=== PATIENT | female | born 1945 | race Caucasian/White ===

== ENCOUNTER 2019-04-02 21:06 | Inpatient (IN) | payer MEDICARE, OTHER ==
[~2019-04-02] VITALS: Ht 167.6 cm; Wt 72.8 kg
[~2019-04-02 21:06] MED LIST: ACIDOPHILUS1 EAC1 PO; ASPI81CH PO; Aspir 8181 MG PO; BIOTIN2500 MCG PO; BUPR150ER PO; CALCIUM 500 +1 EAC2 PO; COLE625 PO; CYAN1000 PO; FENO145 PO; FISH OIL 1,0001 EACH PO; FISH1000 PO; FLAX PO; Fe C Tablet1 EACH PO; HYDCHL12.5 PO; Hair, Skin & N1 EACH PO; IRON150C PO; LEVSOD100 PO; LEVSOD75 PO; LIOT25 PO; LOSA50 PO; LOSARTAN-HCTZ1 EACH PO; Multiple Vitam1 EAC1 PO; RANI150 PO; SERT100 PO; STOOL SOFTENER1 EAC1 PO; VITAMIN B122500 MCG PO; VITAMIN D33000 UNIT PO
[2019-04-02] MEDS ORDERED: LOSARTAN-HCTZ1 EACH PO (22:10)
[2019-04-02] MEDS ORDERED: PROP10 PO (22:10)
[2019-04-02 22:28] LABS: BASOPHILS ABSOLUTE AUTO 0.03 K/mm3 (0.00-0.23); BASOPHILS PERCENT AUTO 0 % (0-2); EOSINOPHILS PERCENT AUTO 0 % (0-6); Hematocrit 36.7 % (33.0-51.0); Hemoglobin 12.3 g/dL (11.5-16.0); IMMATURE GRAN PERCENT AUTO 1 % (0-1); LYMPHOCYTES ABSOLUTE AUTO 0.67 K/mm3 (0.84-5.20); LYMPHOCYTES PERCENT AUTO 5 % (21-46); MONOCYTES ABSOLUTE AUTO 0.63 K/mm3 (0.16-1.47); MONOCYTES PERCENT AUTO 4 % (4-13); Mean Corpuscular HGB Conc 33.5 g/dL (31.5-36.5); Mean Corpuscular Volume 90 fL (80-100); Mean Platelet Volume 10.2 fL (9.1-12.4); NEUTROPHILS PERCENT AUTO 90 % (41-73); Platelet Count 151 K/mm3 (150-400); RDW Coefficient Variation 13.2 % (11.7-14.2); RDW Standard Deviation 43.8 fL (35.1-46.3); White Blood Cell Count 14.63 K/mm3 (4.00-11.30)
[2019-04-02 22:42] LABS: Alanine Aminotransfer (ALT/SGP 39 U/L (12-78); Albumin, Blood 3.4 g/dL (3.4-5.0); Albumin/Globulin Ratio 0.9 (0.8-1.8); Alk Phos 86 U/L (50-136); Anion Gap 10 mmol/L (6-16); Aspartate Aminotrans (AST/SGOT 23 U/L (12-37); Bilirubin, Total 0.9 mg/dL (0.1-1.0); Blood Urea Nitrogen 17 mg/dL (8-24); Bun/Creatinine Ratio 25.9 (12.0-20.0); CO2, Blood 24 mmol/L (21-32); Chloride, Blood 104 mmol/L (98-108); Creatinine, Blood 0.66 mg/dL (0.40-1.00); Globulin, Blood 3.9 g/dL (2.2-4.0); Glomerular Filtration Rate >60 (60-); Glucose, Blood 164 mg/dL (70-99); Magnesium, Blood 1.2 mg/dL (1.6-2.4); Potassium, Blood 2.9 mmol/L (3.5-5.5); Sodium, Blood 138 mmol/L (136-145); Total Protein, Blood 7.3 g/dL (6.4-8.2)
[2019-04-02 22:43] LABS: Source, Urine Clean Catch
[2019-04-02 22:45] LABS: Appearance, Urine Cloudy (Clear); Bilirubin, Urine Neg (Neg); Blood, Urine 5+ (Neg); Color, Urine Amber (P-Yellow); Glucose Qualitative, Urine Neg (Neg); Ketones, Urine 1+ (Neg); Leukocyte Esterase, Urine 3+ (Neg); Nitrite, Urine Neg (Neg); Protein, Urine 4+ (Neg); Specific Gravity, Urine 1.015 (1.003-1.022); Urobilinogen, Urine NORM (Normal)
[2019-04-02 22:59] LABS: Bacteria Many /hpf; Red Blood Cells, Urine 0-2 /hpf (0-2); Squamous Epithelial Cells Few /hpf (Few); White Blood Cells, Urine TNTC /hpf (0-5)
[2019-04-02 23:49] LABS: CPK Creatine Kinase 159 U/L (26-193)
--- NOTE | 2019-04-03 02:00 | NUR ---
PT TO ICU 9 FROM ED. PT ARRIVES ON STRETCHER ABLE TO STAND AND PIVOT TO BSC AND THEN INTO BED WITH NO DIFFICULTY. PT RECEIVING 3 OF 3 LITER BOLUS ON ARRIVAL. SATS IN LOW TO MID 90'S ON 2L NC. PT AFEBRILE WITH TEMP OF 98.1 AND 98.6. PT ALERT, ORIENTED, AND PLEASANT STATING THAT SHE "FEELS MUCH BETTER" BUT THAT SHE IS "COLD". PT DENIES NAUSEA AT THIS TIME. LUNG SOUNDS CLEAR T/O WITH AUDIBLE WHEEZES. PT'S AND GRANDSON AT BEDSIDE. DR. HANNAH IN TO ASSESS PATIENT. SEE FULL ADMISSION HISTORY AND ASSESSMENT.
[2019-04-03 03:29] LABS: Hematocrit 33.8 % (33.0-51.0); Hemoglobin 10.8 g/dL (11.5-16.0); Mean Corpuscular HGB 29.4 pg (26.0-34.0); Mean Corpuscular Volume 92 fL (80-100); Mean Platelet Volume 9.7 fL (9.1-12.4); Platelet Count 137 K/mm3 (150-400); RDW Coefficient Variation 13.4 % (11.7-14.2); RDW Standard Deviation 45.8 fL (35.1-46.3); Red Blood Cell Count 3.67 M/mm3 (3.80-5.20); White Blood Cell Count 12.32 K/mm3 (4.00-11.30)
[2019-04-03 03:49] LABS: Alanine Aminotransfer (ALT/SGP 32 U/L (12-78); Albumin, Blood 2.9 g/dL (3.4-5.0); Albumin/Globulin Ratio 0.8 (0.8-1.8); Alk Phos 76 U/L (50-136); Anion Gap 7 mmol/L (6-16); Aspartate Aminotrans (AST/SGOT 23 U/L (12-37); Bilirubin, Total 0.4 mg/dL (0.1-1.0); Blood Urea Nitrogen 15 mg/dL (8-24); Bun/Creatinine Ratio 19.5 (12.0-20.0); CO2, Blood 25 mmol/L (21-32); Calcium, Blood 7.8 mg/dL (8.5-10.1); Chloride, Blood 109 mmol/L (98-108); Creatinine, Blood 0.77 mg/dL (0.40-1.00); Globulin, Blood 3.6 g/dL (2.2-4.0); Glomerular Filtration Rate >60 (60-); Glucose, Blood 153 mg/dL (70-99); Potassium, Blood 3.7 mmol/L (3.5-5.5); Sodium, Blood 141 mmol/L (136-145); Total Protein, Blood 6.5 g/dL (6.4-8.2)
[2019-04-03 03:52] LABS: Source, Urine Catheter
[2019-04-03 03:53] LABS: Appearance, Urine Hazy (Clear); Bilirubin, Urine Neg (Neg); Blood, Urine 5+ (Neg); Color, Urine Yellow (P-Yellow); Glucose Qualitative, Urine Neg (Neg); Ketones, Urine Neg (Neg); Leukocyte Esterase, Urine 3+ (Neg); Nitrite, Urine Pos (Neg); Protein, Urine 3+ (Neg); Urobilinogen, Urine NORM (Normal)
[2019-04-03 04:02] LABS: White Blood Cells, Urine 50-100 /hpf (0-5)
[2019-04-03 04:03] LABS: Bacteria Many /hpf; Squamous Epithelial Cells Not Seen /hpf (Few)
--- NOTE | 2019-04-03 04:12 | NUR ---
0335 PT'S RR RATE INTO MID 40'S AND SATS IN 70'S-80'S. WENT TO CHECK ON PT AND PT WAS HALF IN AND HALF OUT OF BED. PT'S LIPS WERE CYANOTIC AND PT WAS MINIMALLY RESPONSIVE. PT SAFELY PUT BACK INTO BED AND 02 INCREASED TO 15 L WITH MINIMAL OXYGENATION IMPROVEMENT. PT PLACED ON NONREBREATHER AT 15L, SATS BETWEEN 93-98%. PT HYPERTENSIVE AND TACHYPNEIC. MOODY TEMP PLACED TO ACCURATELY TRACK PT'S TEMP. TEMP ON INSERTION 103.0. ICE PACK PLACED IN GROIN AND ARMPITS AND HOSPITALIST NOTIFIED OF PT'S CHANGE IN CONDITION. TYLENOL SUPPOSITORY GIVEN. 0400 PT'S TEMPERATURE CURRENTLY 105, COOLING BLANKET STARTED. PT APPEARS LETHARGIC AND MINIMALLY RESPONSIVE VERBALLY. PT NORMOTENSIVE, RR IN MID 30'S. WILL CONTINUE TO MONITOR
--- NOTE | 2019-04-03 04:52 | NUR ---
PT SWITCHED TO [place] FACE MASK, 4L SATS IN THE MID TO LOW 90'S
--- NOTE | 2019-04-03 05:34 | NUR ---
HOSPITALIST AT BEDSIDE. UPDATED ON PT'S STATUS. PT IS CURRENTLY MUCH MORE ALERT AND STATES THAT SHE DOESN'T REMEMBER ATTEMPTING TO CRAWL OUT OF BED. BED IN LOW LOCKED POSITION, DOOR/CURTAIN OPEN, BED ALARM ON.
--- NOTE | 2019-04-03 05:56 | NUR ---
PT HYPOTENSIVE. BRIELLE AT BEDSIDE TO PLACE CENTRAL LINE.
--- NOTE | 2019-04-03 06:01 | NUR ---
PT'S UPDATED WITH PT'S MEDICAL STATUS
--- NOTE | 2019-04-03 07:20 | NUR ---
RECEIVED REPORT FROM FRANCIE CORTEZ RN THAT CENTRAL LINE XRAY WAS DONE AND VERIFIED. LEVOPHED WAS ALREADY INFUSING IN LINE. PT WAS STILL HYPOTENSIVE DESPITE FLUID BOLUS RUNNING, SO LEVOPHED WAS TIRTRATED UP.
[2019-04-03 09:02] LABS: PCO2 Arterial 37.8 mmHg (35-45); PO2 Arterial 78.8 mmHg (80-100)
--- NOTE | 2019-04-03 09:10 | NUR ---
09-ASSISTED DR. GONZALEZ WITH CENTRAL LINE REPOSITIONING. SHE WAS NOTIFIED OF THE CONSULT. REGARDING PT'S BLOOD PRESSURE. ORDERS RECEIVED. 909-CHEST X-RAY WAS DONE AFTER CENTRAL LINE WAS PULLED 2 CM OUT. PLACEMENT CONFIRMED BY DR. GONZALEZ.
--- NOTE | 2019-04-03 12:00 | NUR ---
STILL ON LEVOPHED @ 6MCG/KG/MIN. PT HAD REFUSED HER BREAKFAST AND DINNER BUT IS ABLE TO TOLERATE WATER & ICE CREAM. PT STATED SHE FELT MUCH BETTER THAN EARLY THIS MORNING.
[2019-04-03 13:33] LABS: Adenovirus Not Detected (NOT DETECT); Bordetella pertussis Not Detected (NOT DETECT); Chlamydophila pneumoniae Not Detected (NOT DETECT); Coronavirus 229E Not Detected (NOT DETECT); Coronavirus HKU1 Not Detected (NOT DETECT); Coronavirus NL63 Not Detected (NOT DETECT); Coronavirus OC43 Not Detected (NOT DETECT); Human Metapneumovirus Not Detected (NOT DETECT); Human Rhinovirus/Enterovirus Not Detected (NOT DETECT); Influenza A Not Detected (NOT DETECT); Influenza A/2009-H1 Not Detected (NOT DETECT); Influenza A/H1 Not Detected (NOT DETECT); Influenza A/H3 Not Detected (NOT DETECT); Influenza B Not Detected (NOT DETECT); Mycoplasma pneumoniae Not Detected (NOT DETECT); Parainfluenza Virus 1 Not Detected (NOT DETECT); Parainfluenza Virus 2 Not Detected (NOT DETECT); Parainfluenza Virus 3 Not Detected (NOT DETECT); Parainfluenza Virus 4 Not Detected (NOT DETECT); Respiratory Syncytial Virus Not Detected (NOT DETECT)
--- NOTE | 2019-04-03 16:00 | NUR ---
PT IS RESTING IN BED VISTING WITH FAMILY. RECENTLY WAS ABLE TO MAKE ANOTHER TIRATION DOWNON LEVOPHED. PT IS CURRENTLY RUNNING AT 3MCG/MIN. PLACED PT ON ROOM AIR AT THIS TIME SHE HAS MAINTAINED SAT'S IN THE MID TO HIGH 90'S. PT HAS BEEN PUTTING OUT ADAQUATE URINE IN HER MOODY.
--- NOTE | 2019-04-03 18:34 | NUR ---
WAS ABLE TO START WEANING PT TODAY FROM LEVOPHED AFTER PT RECEIVED MULTIPLE BOLUSES OF IV FLUIDS. PT CURRENTLY RUNNING LEVOPHED AT 3MCG/MIN. PT WAS WEANED TO ROOM AIR THIS AFTERNOON. TMAX TODAY WAS 100.2 AND PT HAS BEEN AFEBRILE THIS AFTERNOON. ENCOURAGED PT TO REMEMBER TO REPOSITION HERSELF WHILE LAYING IN BED.
[2019-04-04 05:11] LABS: Hematocrit 26.5 % (33.0-51.0); Hemoglobin 8.5 g/dL (11.5-16.0); Mean Corpuscular HGB 29.4 pg (26.0-34.0); Mean Corpuscular HGB Conc 32.1 g/dL (31.5-36.5); Mean Corpuscular Volume 92 fL (80-100); Mean Platelet Volume 10.1 fL (9.1-12.4); Platelet Count 96 K/mm3 (150-400); RDW Coefficient Variation 14.2 % (11.7-14.2); RDW Standard Deviation 48.2 fL (35.1-46.3); Red Blood Cell Count 2.89 M/mm3 (3.80-5.20); White Blood Cell Count 11.33 K/mm3 (4.00-11.30)
--- NOTE | 2019-04-04 05:15 | NUR ---
ASSUMED PT CARE/END OF SHIFT SUMMARY ASSUMED PT CARE AT 191. PT SLEEPING; EASILY AROUSABLE. ALERT AND ORIENTED AND ABLE TO MAKE NEEDS KNOWN. LEVOPHED INFUSING AT 3MCG/MIN UPON START OF SHIFT; TITRATED DOWN TO 1MCG/MIN AT 1999 AND TURNED OFF BY 0. BLOOD PRESSURES HAVE REMAINED STABLE WITH SYSTOLIC ABOVE 100 AND MAP'S GREATER THAN 65. CHANGED CENTRAL LINE TO RIGHT IJ; PT IS CURRENTLY SALINE LOCKED. NSR WITH HR 70'S. ONE EPISODE OF A NON-SUSTAINED 8 BEAT RUN OF V-TACH; ASYMPTOMATIC. 2L OF OXYGEN VIA NASAL CANNULA; BIOX > 91%; LUNG SOUNDS REMAIN CLEAR T/O ALL LOBES. MOODY CATHETER IS PATENT AND DRAINING KERON COLORED URINE TO GRAVITY. PT C/O HEADACHE PAINS 4/10; MEDICATED WITH TYLENOL PER ORDERS; EFFECTIVE. CALL LIGHT LEFT WITHIN REACH; PT ABLE TO MAKE HER NEEDS KNOWN. WILL CONTINUE TO MONITOR UNTIL REPORT IS HANDED OFF TO ONCOMING RN
[2019-04-04 05:35] LABS: Anion Gap 7 mmol/L (6-16); Blood Urea Nitrogen 13 mg/dL (8-24); Bun/Creatinine Ratio 19.7 (12.0-20.0); CO2, Blood 22 mmol/L (21-32); Calcium, Blood 7.8 mg/dL (8.5-10.1); Chloride, Blood 118 mmol/L (98-108); Creatinine, Blood 0.66 mg/dL (0.40-1.00); Glomerular Filtration Rate >60 (60-); Glucose, Blood 109 mg/dL (70-99); Magnesium, Blood 1.8 mg/dL (1.6-2.4); Potassium, Blood 3.7 mmol/L (3.5-5.5); Sodium, Blood 147 mmol/L (136-145)
[2019-04-04 05:46] LABS: BAND PERCENT MAN 7 % (0-8); BASOPHILS PERCENT MAN 0 % (0-2); EOSINOPHILS PERCENT MAN 0 % (0-6); LYMPHOCYTES ABSOLUTE MAN 1.01 K/mm3 (0.84-5.20); LYMPHOCYTES PERCENT MAN 9 % (21-46); MONOCYTES ABSOLUTE MAN 0.45 K/mm3 (0.16-1.47); MONOCYTES PERCENT MAN 4 % (4-13); NEUTROPHILS ABSOLUTE MAN 9.85 K/mm3 (1.96-9.15); SEG NEUTROPHILS PERCENT MAN 80 % (41-73); TOTAL CELLS COUNTED 100
--- NOTE | 2019-04-04 09:41 | NUR ---
CARE ASSUMED CARE AND REPORT ASSUMED FROM KHOA RIVERA. PT SITTING UP IN BED TALKING WITH DAUGHTER. A/O X3. C/O HEADAHCE, UPPER BACK PAIN, AND R FLANK PAIN. CORE TEMP READING 100.0; WILL MONITOR AND RECHECK WITH TEMPORAL PROBE. WILL MEDICATE WITH TYLENOL PO. IVS SALINE LOCKED. NSR, HR 80S. MAP 80. CLEAR LUNG SOUNDS WITH FINE CRACKLES IN BASES; SPO2 95% ON RA. MOODY CATH REMAINS SECURED AND PATENT; DARK URINE AT THIS TIME. WILL ATTEMPT TO REMOVE TODAY. WILL CONTINUE TO MONITOR.
--- NOTE | 2019-04-04 12:30 | NUR ---
REASSESSMENT PATIENT GAVE STUDENT NURSE PERMISSION TO PROVIDE CARE ON 04/04/19. PATIENT ATTEMPTED TAKING NAP AND COMPLAINED OF BACK PAIN. BACK RUB AND HEATING PAD PROVIDED WHICH PATIENT STATES HELPED. SEEN BY MD AND UPDATED FAMILY AT BEDSIDE. MOODY CATHETHER REMOVED WITHOUT COMPLICATION. PATIENT HAD BM. OFFERED BED BATH BUT PATIENT REFUSED STATED SHE HAD ONE AT 0400. CURRENTLY UP IN CHAIR EATING LUNCH WITH . PATIENT FELT SOB AFTER BM, 2L NC STARTED TOLERATING WELL; SPO2 97%. LUNG SOUNDS CLEAR IN UPPER LOBES BUT FINE CRACKLES IN BASES. PATIENT STATES PAIN IS 0/10 NOW AND AFEBRILE CURRENTLY. WILL CONTINUE TO MOINTOR.
--- NOTE | 2019-04-04 13:35 | NUR ---
LR WAS STARTED ORDER 50CC/HR, INFUSING VIA CENTRAL LINE ON RIGHT IJ.
--- NOTE | 2019-04-04 17:09 | NUR ---
Reassesment Pt sleep most of afternoon in bed, currently sitting in bed engaging with family members. Vital signs WNL, pt was afebrile. Expitory wheezes noted anteriorly, educated on incentive siprometer. Wheezes improved after. Pt O2 level was 95% on 2 liters NC. RT at bedside. Pt had no difficulty drinking medication. Will continue to monitor.
--- NOTE | 2019-04-04 18:24 | NUR ---
SHIFT SUMMARY' MOODY CATH REMOVED EARLY IN SHIFT. UP TO CHAIR FOR FEW HOURS AND LINENS CHANGED. UP TO TOILET MULTIPLE TIMES DURING SHIFT. PT HAD 2 LARGE, SOFT BOWEL MOVEMENTS DURING SHIFT. TYELNOL PO GIVEN FOR PAIN AND FEVER NEEDED. FAMILY BEDSIDE THROUGHOUT SHIFT. PT TENDS TO BECOME SOB WITH EXERTION AND IS WHEEZY FOR AWHILE. FEW EPISODES TODAY WHERE PT BECAME WHEEZY, SUDDENLY TIRED, AND C/O INSTANT HEADACHE. ALBUTEROL TREATMENTS GIVEN PRN. PT USING FLUTTER VALVE AND IS TOLERATED. AT BEDSIDE MOST OF SHIFT. MD MOLINA AWARE OF DYSPNEA WITH EXERTION. LR MIV STARTED AT 50 ML/HR PER ORDER. WILL GIVE BEDSIDE, HANDOFF REPORT TO VIJAY RIVERA.
--- NOTE | 2019-04-04 22:05 | NUR ---
ASSUMED PT CARE AT 1915 PT LYING IN BED WITH AT BEDSIDE. ALERT AND ORIENTED AND ABLE TO MAKE NEEDS KNOWN. C/O 6/10 HEADACHE PAIN; STATES IT FEELS LIKE PRESSURE AND ACHING TYPE PAIN AT THE BASE OF HER HEAD THAT RADIATES TO SHARP STABBING PAIN TO BILATERAL EARS. DAY SHIFT MEDICATED WITH PRN TYLENOL PER ORDER WITH NO TO MINIMAL EFFECT. PT HAS HEATING PAD UNDER NECK, HEAD, AND UPPER PORTION OF BACK THAT SHE STATES IS HELPING TREMENDOUSLY. CALLED PHYSICIAN WHO GAVE ORDERS FOR A ONE TIME DOSE OF ULTRAM 50MG BY MOUTH; WILL MONITOR FOR EFFECTIVENESS. PT BECOMES VERY SOB WITH MINIMAL EXERTION. AUDIBLE WHEEZING NOTED AT TIMES; HOWEVER, LUNG SOUNDS ARE CLEAR T/O ALL LOBES. 2L OF OXYGEN VIA NC; BIOX GREATER THAN 91%. NSR WITH HR 80'S; INCREASES TO 100'S WITH EXERTION. ABDOMEN IS SOFT, NON-TENDER WITH HYPERACTIVE TONES NOTED X4. PT HAS BEEN HAVING LOOSE, LIQUID STOOL. CONTINENT OF BOTH BOWEL AND BLADDER. VOIDING APPROPRIATELY POST MOODY REMOVAL. CENTRAL LINE TO RIGHT IJ; REMAINS SALINE LOCKED. CALL LIGHT LEFT WITHIN REACH; WILL CONTINUE TO MONITOR.
[2019-04-05 04:45] LABS: BASOPHILS ABSOLUTE AUTO 0.03 K/mm3 (0.00-0.23); BASOPHILS PERCENT AUTO 0 % (0-2); EOSINOPHILS PERCENT AUTO 1 % (0-6); Hematocrit 26.9 % (33.0-51.0); Hemoglobin 8.7 g/dL (11.5-16.0); IMMATURE GRAN ABSOLUTE AUTO 0.07 K/mm3 (0.00-0.10); IMMATURE GRAN PERCENT AUTO 1 % (0-1); LYMPHOCYTES ABSOLUTE AUTO 0.89 K/mm3 (0.84-5.20); LYMPHOCYTES PERCENT AUTO 9 % (21-46); MONOCYTES ABSOLUTE AUTO 0.69 K/mm3 (0.16-1.47); MONOCYTES PERCENT AUTO 7 % (4-13); Mean Corpuscular HGB 29.8 pg (26.0-34.0); Mean Corpuscular HGB Conc 32.3 g/dL (31.5-36.5); Mean Corpuscular Volume 92 fL (80-100); Mean Platelet Volume 9.9 fL (9.1-12.4); NEUTROPHILS ABSOLUTE AUTO 7.76 K/mm3 (1.96-9.15); NEUTROPHILS PERCENT AUTO 82 % (41-73); Platelet Count 131 K/mm3 (150-400); RDW Coefficient Variation 14.4 % (11.7-14.2); RDW Standard Deviation 48.9 fL (35.1-46.3); Red Blood Cell Count 2.92 M/mm3 (3.80-5.20); White Blood Cell Count 9.54 K/mm3 (4.00-11.30)
[2019-04-05 05:01] LABS: Albumin, Blood 2.3 g/dL (3.4-5.0); Anion Gap 8 mmol/L (6-16); Blood Urea Nitrogen 11 mg/dL (8-24); Bun/Creatinine Ratio 18.9 (12.0-20.0); CO2, Blood 22 mmol/L (21-32); Calcium, Blood 8.1 mg/dL (8.5-10.1); Chloride, Blood 114 mmol/L (98-108); Creatinine, Blood 0.58 mg/dL (0.40-1.00); Glomerular Filtration Rate >60 (60-); Glucose, Blood 140 mg/dL (70-99); Magnesium, Blood 1.6 mg/dL (1.6-2.4); Phosphorus, Blood 1.7 mg/dL (2.5-4.9); Potassium, Blood 3.5 mmol/L (3.5-5.5); Sodium, Blood 144 mmol/L (136-145)
--- NOTE | 2019-04-05 05:28 | NUR ---
END OF SHIFT SUMMARY NO SIGNIFICANT CHANGES SINCE LAST ENTRY. NIGHT WAS UNEVENTFUL. PT UP TO BEDSIDE COMMODE T/O NIGHT WITH ONE PERSON ASSIST FOR SAFETY. SOB WITH EXERTION SEEMED TO IMPROVE SLIGHTLY. BIOX MAINTAINED WITH OXYGEN AT 2L VIA NASAL CANNULA. LUNG SOUNDS REMAIN CLEAR T/O ALL LOBES. PT HAS BEEN NSR WITH OCCASIONAL PVC'S AND INTO SINUS TACH WITH EXERTION. STABLE BP'S. PT HAD ANOTHER NON-SUSTAINED; ASYMPTOMATIC RUN OF VTACH. DENIES ANY CHEST PAIN OR DISCOMFORT. ONLY C/O RECURRING HEADACHE PAIN THAT RADIATED TO BILATERAL EARS. MEDICATED WITH ONE DOSE OF ULTRAM 50MG AND TYLENOL THAT APPEARED EFFECTIVE. CALL LIGHT LEFT WITHIN REACH; PT ABLE TO MAKE NEEDS KNOWN. WILL CONTINUE TO MONITOR UNTIL REPORT IS HANDED OFF TO ONCOMING RN.
--- NOTE | 2019-04-05 08:00 | NUR ---
DR. VILLEDA IN TO SEE PATIENT, NEW ORDERS RECEIVED.
--- NOTE | 2019-04-05 09:22 | NUR ---
PT IN TO WORK WITH PATIENT, UP TO ROOM TOILET, VOIDED, PULL UP CHANGED, PATIENT NOW UP IN CHAIR, CALL LIGHT IN REACH, WILL CONTINUE TO MONITOR.
--- NOTE | 2019-04-05 10:40 | NUR ---
VACCINE MANAGER HERE TO DO ORDERED ECHO, PATIENT RETURNED TO BED FROM CHAIR WITH WALKER AND ONE ASSIST, PATIENT STEADY, CALL LIGHT IN REACH, WILL CONTINUE TO MONITOR.
--- NOTE | 2019-04-05 11:04 | NUR ---
ECHO DONE, PATIENT RESTING COMFORTABLY, NO NEEDS IDENTIFIED AT THIS TIME.
--- NOTE | 2019-04-05 12:17 | NUR ---
REPORT REC FROM COLLISION CENTER MANAGER @ [id number], PT WILL COME UP VIA W/C AFTER LUNCH
--- NOTE | 2019-04-05 12:17 | NUR ---
REPORT CALLED TO JOYCE GARDNER RN, WILL TRANSFER PATIENT TO ROOM 306 ONCE SHE ATE LUNCH.
--- NOTE | 2019-04-05 18:42 | NUR ---
SHIFT SUMMARY PT XFER'D FROM ICU @1300, A&O, NO C/O ANY KIND, BEDRESTING, WILL CONT TO MONITOR UNTIL REPORT GIVEN TO VIJAY RIVERA.
--- NOTE | 2019-04-06 05:11 | NUR ---
PT A/O X4. PLEASANT AND FOLLOWED COMMANDS. SLEPT WELL THROUGHOUT THE NIGHT. CALLS APPROPRIATELY. VSS, NO ACUTE CHANGES. PLANS TO BE DISCHARGED TODAY.
[2019-04-06] MEDS ORDERED: Vsl#3 Capsule1 EACH PO (09:28)
[2019-04-06] MEDS ORDERED: CEPH500 PO (09:29)
--- NOTE | 2019-04-06 09:30 | NUR ---
NO PREFERENCE FOR HOME [facility]ALTH [facility], WHOEVER CAN GET TO HER FASTER.
--- NOTE | 2019-04-06 14:45 | NUR ---
DISCHARGE PT DISCHARGED TO HOME. THIS RN EXPLAINED DISCHARGE INSTRUCTIONS AND MEDICATIONS TO PT AND SHE REPORTS SHE UNDERSTANDS. IV REMOVED WITHOUT DIFFICULTY. PT TRANSFERRED TO PRIVATE VEHICLE VIA WHEELCHAIR. BELONGINGS WITH PT.
== END 2019-04-06 13:08 | disposition home health service (06) | DRG 871 ==
LOC: ER 21:06 → ICUW 21:07 → ER 04-03 00:33 → ICUW 04-03 01:31 → MEDS 04-05 12:49 → ENPENDDIS 04-06 09:29 → MEDS 04-06 13:08
PROVIDERS: Emergency Medicine; Internal Medicine; Internal Medicine Critical Care Medicine; Internal Medicine Pulmonary Disease; ADMIT Internal Medicine
PROC: 05HM33Z Insertion of Infusion Device into Right Internal Jugular Vein, Percutaneous Approach (ICD-10-PCS; principal; 2019-04-03)
PROC: B543ZZA Ultrasonography of Right Jugular Veins, Guidance (ICD-10-PCS; 2019-04-03)
DX: A41.51 Sepsis due to Escherichia coli [E. coli] (principal); R65.21 Severe sepsis with septic shock; J96.01 Acute respiratory failure with hypoxia; G92 Toxic encephalopathy; N10 Acute pyelonephritis; E87.0 Hyperosmolality and hypernatremia; I47.2 Ventricular tachycardia; J98.11 Atelectasis; D69.6 Thrombocytopenia, unspecified; E87.6 Hypokalemia; E83.42 Hypomagnesemia; E03.9 Hypothyroidism, unspecified; I10 Essential (primary) hypertension; E78.5 Hyperlipidemia, unspecified; F32.9 Major depressive disorder, single episode, unspecified; I27.20 Pulmonary hypertension, unspecified; E86.1 Hypovolemia; E78.00 Pure hypercholesterolemia, unspecified; E86.0 Dehydration; W19.XXXA Unspecified fall, initial encounter; Z88.1 Allergy status to other antibiotic agents; Z88.8 Allergy status to other drugs, medicaments and biological substances; Z79.82 Long term (current) use of aspirin; Z79.899 Other long term (current) drug therapy
CPT/HCPCS: 0099U; 36415; 36556; 36600; 51702; 70450; 71045; 71046; 71260; 74177; 80048; 80053; 80069; 81001; 82550; 82803; 83605; 83735; 83880; 84145; 84484; 85025; 85027; 85379; 87040; 87077; 87086; 87186; 93005; 93010; 93306; 94667; 94760; 96361; 96365-59; 96367; 96375; 96376; 97110; 97116; 97162; 97165; 97530; 99285-25; A9270; C1751; G0378; J0692; J0696; J1650; J1940; J1956; J2405; J3475; J7030; J7040; J7050; J7060; J7120; Q9967

== ENCOUNTER → 2019-05-14 | Outpatient (CLI) | payer MEDICARE, OTHER ==
[~2019-05-14] MED LIST changes: +CEPH500 PO; +PROP10 PO; +Vsl#3 Capsule1 EACH PO
== END | disposition home or self-care (01) ==
LOC: LAB 17:00 → LAB SHORT 17:00
DX: R35.0 Frequency of micturition (principal); R30.0 Dysuria
CPT/HCPCS: 87077; 87086; 87186

== ENCOUNTER 2019-10-28 12:05 | Day surgery (SDC) | payer MEDICARE, OTHER ==
[~2019-10-28] VITALS: Ht 167.6 cm; Wt 67.2 kg
[~2019-10-28 12:05] MED LIST changes: +AMLO5 PO; +Inderal 20 mg T20 MG PO; +Pravachol40 MG PO
== END 2019-10-28 15:15 | disposition home or self-care (01) ==
LOC: ORSCSDS 12:05
PROVIDERS: Internal Medicine Gastroenterology
PROC: 0DJ08ZZ Inspection of Upper Intestinal Tract, Via Natural or Artificial Opening Endoscopic (ICD-10-PCS; principal; 2019-10-28 13:45)
PROC: 0DBK8ZX Excision of Ascending Colon, Via Natural or Artificial Opening Endoscopic, Diagnostic (ICD-10-PCS; principal; 2019-10-28 13:45)
PROC: 0DBP8ZX Excision of Rectum, Via Natural or Artificial Opening Endoscopic, Diagnostic (ICD-10-PCS; principal; 2019-10-28 13:45)
PROC: 0D757ZZ Dilation of Esophagus, Via Natural or Artificial Opening (ICD-10-PCS; principal; 2019-10-28 13:45)
DX: R19.5 Other fecal abnormalities (principal); Z80.0 Family history of malignant neoplasm of digestive organs; D12.2 Benign neoplasm of ascending colon; K21.9 Gastro-esophageal reflux disease without esophagitis; K22.2 Esophageal obstruction; K62.89 Other specified diseases of anus and rectum; K57.30 Diverticulosis of large intestine without perforation or abscess without bleeding; Z79.899 Other long term (current) drug therapy
CPT/HCPCS: J2704; J7120

== ENCOUNTER 2020-08-19 14:38 | Emergency (ER) | payer MEDICARE, OTHER ==
[~2020-08-19] VITALS: Ht 162.6 cm; Wt 65.3 kg
[2020-08-19 14:57] LABS: Source, Urine Clean Catch
[2020-08-19 15:00] LABS: Appearance, Urine Cloudy (Clear); Bilirubin, Urine Neg (Neg); Blood, Urine 5+ (Neg); Color, Urine Yellow (P-Yellow); Glucose Qualitative, Urine Neg (Neg); Ketones, Urine Neg (Neg); Leukocyte Esterase, Urine 3+ (Neg); Nitrite, Urine Pos (Neg); Protein, Urine 3+ (Neg); Urobilinogen, Urine NORM (Normal)
[2020-08-19 15:08] LABS: BASOPHILS ABSOLUTE AUTO 0.03 K/mm3 (0.00-0.23); BASOPHILS PERCENT AUTO 0 % (0-2); EOSINOPHILS PERCENT AUTO 3 % (0-6); Hemoglobin 10.4 g/dL (11.5-16.0); IMMATURE GRAN ABSOLUTE AUTO 0.03 K/mm3 (0.00-0.10); IMMATURE GRAN PERCENT AUTO 0 % (0-1); LYMPHOCYTES PERCENT AUTO 21 % (21-46); MONOCYTES ABSOLUTE AUTO 0.54 K/mm3 (0.16-1.47); MONOCYTES PERCENT AUTO 8 % (4-13); Mean Corpuscular HGB Conc 33.5 g/dL (31.5-36.5); Mean Corpuscular Volume 93 fL (80-100); NEUTROPHILS ABSOLUTE AUTO 4.52 K/mm3 (1.96-9.15); NEUTROPHILS PERCENT AUTO 67 % (41-73); Platelet Count 271 K/mm3 (150-400); RDW Coefficient Variation 13.4 % (11.7-14.2); RDW Standard Deviation 43.8 fL (35.1-46.3); Red Blood Cell Count 3.35 M/mm3 (3.80-5.20); White Blood Cell Count 6.72 K/mm3 (4.00-11.30)
[2020-08-19] MEDS ORDERED: ONDA4ODT MM (15:10)
[2020-08-19] MEDS ORDERED: OXYC5 PO (15:11)
[2020-08-19 15:12] LABS: Bacteria Many /hpf; Red Blood Cells, Urine TNTC /hpf (0-2); White Blood Cells, Urine TNTC /hpf (0-5)
[2020-08-19 15:13] LABS: Squamous Epithelial Cells Few /hpf (Few)
[2020-08-19] MEDS ORDERED: ROSUVASTATIN CA20 MG PO (15:13)
[2020-08-19] MEDS ORDERED: CYTOMEL25 MC2 PO (15:14)
[2020-08-19 15:37] LABS: Alanine Aminotransfer (ALT/SGP 24 U/L (12-78); Albumin, Blood 3.2 g/dL (3.4-5.0); Albumin/Globulin Ratio 0.8 (0.8-1.8); Alk Phos 63 U/L (50-136); Anion Gap 9 mmol/L (6-16); Aspartate Aminotrans (AST/SGOT 17 U/L (12-37); Bilirubin, Total 0.6 mg/dL (0.1-1.0); Blood Urea Nitrogen 10 mg/dL (8-24); Bun/Creatinine Ratio 17.3 (12.0-20.0); CO2, Blood 27 mmol/L (21-32); Chloride, Blood 102 mmol/L (98-108); Creatinine, Blood 0.58 mg/dL (0.40-1.00); Globulin, Blood 4.1 g/dL (2.2-4.0); Glomerular Filtration Rate >60 (60-); Glucose, Blood 145 mg/dL (70-99); Potassium, Blood 2.5 mmol/L (3.5-5.5); Sodium, Blood 138 mmol/L (136-145); Total Protein, Blood 7.3 g/dL (6.4-8.2); Troponin I 0.048 ng/mL (0.000-0.040)
[2020-08-19] MEDS ORDERED: CEFP200 PO (19:30)
[2020-08-19] MEDS ORDERED: POTA20PAC PO (19:30)
== END 2020-08-19 20:00 | disposition home or self-care (01) ==
LOC: ER 14:38
PROVIDERS: Emergency Medicine
DX: N39.0 Urinary tract infection, site not specified (principal); F41.9 Anxiety disorder, unspecified; E87.6 Hypokalemia; D64.9 Anemia, unspecified; Z79.82 Long term (current) use of aspirin; Z79.899 Other long term (current) drug therapy; Z88.0 Allergy status to penicillin; Z88.8 Allergy status to other drugs, medicaments and biological substances
CPT/HCPCS: 36415; 80053; 81001; 83880; 84484; 85025; 87077; 87086; 87186; 93005; 93010; 96365; 96375; 99285-25; A9270; J0696; J3010; J3480; J7030

== ENCOUNTER → 2021-05-26 | Outpatient (CLI) | payer MEDICARE, OTHER ==
[~2021-05-26] MED LIST changes: +CEFP200 PO; +CYTOMEL25 MC2 PO; +ONDA4ODT MM; +OXYC5 PO; +POTA20PAC PO; +ROSUVASTATIN CA20 MG PO
== END ==
LOC: LAB SHORT 13:30
DX: R10.30 Lower abdominal pain, unspecified (principal)
CPT/HCPCS: 87077; 87086; 87186

== ENCOUNTER → 2022-05-12 | Outpatient (CLI) | payer MEDICARE, OTHER | END | disposition home or self-care (01) | LOC: LAB SHORT 10:20 | DX: R30.0 Dysuria (principal); R35.0 Frequency of micturition | CPT/HCPCS: 87077; 87086; 87186 ==

== ENCOUNTER → 2022-08-03 | Outpatient (CLI) | payer MEDICARE, OTHER ==
[2022-08-05 08:45] LABS: Stool Occult Bld Immuno 1 Negative (NEGATIVE)
== END | disposition home or self-care (01) ==
LOC: LAB 14:00 → LAB SHORT 14:00
PROVIDERS: Student in an Organized Health Care Education/Training Program
DX: R19.5 Other fecal abnormalities (principal)
CPT/HCPCS: 82274

== ENCOUNTER → 2025-04-01 | Outpatient (CLI) | payer MEDICARE, OTHER ==
[2025-04-01 19:11] LABS: BASOPHILS ABSOLUTE AUTO 0.07 K/mm3 (0.00-0.23); BASOPHILS PERCENT AUTO 1 % (0-2); EOSINOPHILS ABSOLUTE AUTO 0.18 K/mm3 (0.00-0.68); EOSINOPHILS PERCENT AUTO 2 % (0-6); Hematocrit 38.4 % (33.0-51.0); Hemoglobin 12.6 g/dL (11.5-16.0); IMMATURE GRAN ABSOLUTE AUTO 0.01 K/mm3 (0.00-0.10); IMMATURE GRAN PERCENT AUTO 0 % (0-1); LYMPHOCYTES ABSOLUTE AUTO 3.23 K/mm3 (0.84-5.20); LYMPHOCYTES PERCENT AUTO 39 % (21-46); MONOCYTES ABSOLUTE AUTO 0.64 K/mm3 (0.16-1.47); MONOCYTES PERCENT AUTO 8 % (4-13); Mean Corpuscular HGB Conc 32.8 g/dL (31.5-36.5); Mean Corpuscular Volume 89 fL (80-100); NEUTROPHILS ABSOLUTE AUTO 4.25 K/mm3 (1.96-9.15); NEUTROPHILS PERCENT AUTO 51 % (41-73); NRBC ABSOLUTE 0.00 K/mm3 (0.00-0.02); NRBC Auto 0.0 /100 WBC (0.0-0.2); Platelet Count 192 K/mm3 (150-400); RDW Coefficient Variation 13.0 % (11.7-14.2); RDW Standard Deviation 42.4 fL (35.1-46.3)
[2025-04-01 20:53] LABS: Alanine Aminotransfer (ALT/SGP 28 U/L (12-78); Albumin, Blood 4.2 g/dL (3.4-5.0); Albumin/Globulin Ratio 1.3 (0.8-1.8); Anion Gap 9 mmol/L (3-11); Aspartate Aminotrans (AST/SGOT 14 U/L (12-37); Bilirubin, Total 0.4 mg/dL (0.1-1.0); Blood Urea Nitrogen 22 mg/dL (8-24); CHOL/HDL RATIO 3.3; CO2, Blood 25 mmol/L (21-32); Calcium, Blood 9.4 mg/dL (8.5-10.1); Chloride, Blood 107 mmol/L (98-108); Cholesterol 147 mg/dL (50-200); Creatinine, Blood 0.64 mg/dL (0.40-1.00); Globulin, Blood 3.3 g/dL (2.2-4.0); Glucose, Blood 120 mg/dL (70-99); HDL Cholesterol 45 mg/dL (>39); LDL/HDL RATIO 0.9; Low Density Lipoprotein Chol 39 mg/dL (0-110); Magnesium, Blood 1.9 mg/dL (1.6-2.4); Potassium, Blood 3.5 mmol/L (3.5-5.5); Sodium, Blood 137 mmol/L (136-145); Thyroid Stimulating Hormone 1.110 uIU/mL (0.360-4.800); Total Protein, Blood 7.5 g/dL (6.4-8.2); Triglycerides 314 mg/dL (30-160); Very Low Density Lipoprot Chol 62 mg/dL (6-32)
== END | disposition home or self-care (01) ==
LOC: LAB 18:06 → LAB SHORT 18:06
PROVIDERS: Student in an Organized Health Care Education/Training Program
DX: E78.2 Mixed hyperlipidemia (principal); E03.9 Hypothyroidism, unspecified; F41.8 Other specified anxiety disorders; G62.9 Polyneuropathy, unspecified; I10 Essential (primary) hypertension; K21.9 Gastro-esophageal reflux disease without esophagitis; R42 Dizziness and giddiness
CPT/HCPCS: 80053; 80061; 83735; 84443; 85025